=== PATIENT | male | born 1955 | race Caucasian/White ===

== ENCOUNTER 2017-03-31 12:40 | Emergency (ER) | payer MEDICAID, OTHER ==
[2017-03-31] MEDS ORDERED: HYDROCODONE/APAP 7.5/325MG TABLET PO ONE ×2 (13:00→14:25)
--- NOTE | 2017-03-31 13:05 | Emergency Department Record ---
History of Present Illness - General Chief Complaint: Fall Injury Stated Complaint: FALL INJURY Time Seen by Provider: 03/31/17 12:54 Source: Patient, Family Mode of Arrival: Wheelchair Limitations: No limitations - History of Present Illness Initial Comments: 62 yo male presents with right foot and ankle pain after a 6 foot fall off a ladder. He landed on the right lower extremity. He has right ankle and foot pain. No head, neck, chest, abdomen or other extremity pain. No LOC. No head injury. No back pain. No lacerations. No abrasions. MD Complaint: Fall Onset/Timin -: Hour(s) Fall From: From height (distance) When Fall Occurred: 1 hour RN ADVANCED Fall Witnessed: No Place Fall Occurred: Home Loss of Consciousness: None Prolonged Down Time?: No Symptoms Prior to Fall: None Location - Extremities: Right: Ankle, Foot Severity: Moderate Severity scale (1-10): 10 Quality: Aching, Dull, Other Associated Symptoms: Unable to walk - [place] Coma Scale Eye Response: (4) Open spontaneously Motor Response: (6) Obeys commands Verbal Response: (5) Oriented [place] Total: 15 - Related Data Home Medications Medication Instructions Recorded Confirmed Last Taken Albuterol Sulfate [Ventolin Hfa] 1 - 2 puff IH .EVERY 4-6 HOURS PRN 03/31/1711/05 Unknown Cholecalciferol (Vitamin D3) 2,000 unit PO DAILY 03/31/17 03/31/17 03/31/17 [Vitamin D3] Elviteg/Karina/Emtric/Tenofo Ala 1 each PO DAILY 03/31/17 03/31/17 03/31/17 [Genvoya Tablet] Omeprazole [Prilosec] 20 mg PO DAILY 03/31/17 03/31/17 03/31/17 Previous Rx's Medication Instructions Recorded Hydrocodone/Acetaminophen [[place] 1 each PO Q6H #30 tablet 03/31/17 5-325 Tablet] Hydrocodone/Acetaminophen [[place] 1 each PO Q6H #30 tablet 03/31/17 7.5-325 Tablet] Allergies Allergy/AdvReac Type Severity Reaction Status Date / Time No Known Drug Allergies Allergy Verified 01/13/15 18:04 Travel Screening - Travel/Exposure Within Last 30 Days Have you traveled within the last 30 days?: No - Travel/Exposure Within Last Year Have you traveled outside the [place] in the last year?: No - Additonal Travel Details Have you been exposed to anyone with a communicable illness?: No Review of Systems Constitutional: Denies: Chills, Fever, Malaise, Weakness Eyes: Denies: Eye discharge ENT: Denies: Congestion, Throat pain Respiratory: Denies: Cough, Dyspnea, Hemoptysis, Stridor, Wheezes Cardiovascular: Denies: Chest pain, Palpitations, Syncope Endocrine: Denies: Fatigue Gastrointestinal: Denies: Abdominal pain, Diarrhea, Nausea, Vomiting Genitourinary: Denies: Hematuria, Urgency Musculoskeletal: Reports: Arthralgia, Joint swelling, Myalgia. Denies: Back pain, Neck pain Skin: Denies: Bruising, Change in color, Rash Neurological: Reports: Tingling. Denies: Numbness, Tremors, Vertigo, Weakness Psychiatric: Denies: Anxiety Hematological/Lymphatic: Denies: Easy bleeding, Easy bruising, Swollen glands Past Medical History - SOCIAL HISTORY Smoking Status: Former smoker Alcohol Use: Heavy Drug Use: None - RESPIRATORY Hx Respiratory Disorders: No - CARDIOVASCULAR Hx Cardio Disorders: No - NEURO Hx Neuro Disorders: No - GI Hx GI Disorders: Yes Hx Abdominal Pain: Yes - Hx Genitourinary Disorders: Yes Hx Prostate Problems: Yes - ENDOCRINE Hx Endocrine Disorders: No - MUSCULOSKELETAL Hx Musculoskeletal Disorders: No - PSYCH Hx Psych Problems: Yes Hx Anxiety: Yes Hx Depression: Yes - HEMATOLOGY/ONCOLOGY Hx Hematology/Oncology Disorders: Yes Hx Blood Disorders: (HIV) Hx Cancer: Yes (skin) Hx Chemotherapy: No Hx Radiation Therapy: No Comment:: HIV positive/negative (undetectable) Family Medical History Any Significant Family History?: No Physical Exam - General General Appearance: Alert, Oriented x3, Cooperative, No acute distress Limitations: No limitations - Head Head exam: Atraumatic, Normocephalic, Normal inspection Head exam detail: negative: Abrasion, Contusion, Hematoma, Laceration - Eye Eye exam: Normal appearance, PERRL - ENT ENT exam: Normal exam, Mucous membranes moist, Normal external ear exam, Normal orophraynx, TM's normal bilaterally Ear exam: Normal external inspection. negative: External canal tenderness Nasal Exam: Normal inspection. negative: Discharge, Sinus tenderness Mouth exam: Normal external inspection, Tongue normal Teeth exam: Normal inspection. negative: Dental caries Throat exam: Normal inspection. negative: Tonsillar erythema, Tonsillar exudate - Neck Neck exam: Normal inspection, Full ROM. negative: Lymphadenopathy, Tenderness - Respiratory Respiratory exam: Normal lung sounds bilaterally. negative: Accessory muscle use, Chest wall tenderness, Decreased breath sounds, Respiratory distress - Cardiovascular Cardiovascular Exam: Regular rate, Normal rhythm, Normal heart sounds Peripheral Pulses: 2+: Dorsalis Pedis (R) - GI/Abdominal GI/Abdominal exam: Soft. negative: Distended, Guarding, Rigid, Tenderness - Rectal Rectal exam: Deferred - exam: Deferred - Extremities Extremities exam: Joint swelling, Normal capillary refill. negative: Normal inspection, Calf tenderness, Full ROM, Tenderness Image of Feet: 1 - tender lateral right foot and ankles, mild swelling, intact skin, no gross deformity, intact cap refill, intact sensation but some subjective tingling on dorsal foot, - Back Back exam: Reports: Normal inspection, Full ROM. Denies: Muscle spasm, Rash noted, Tenderness - Neurological Neurological exam: Alert, Oriented X3. negative: Altered, Motor sensory deficit - Psychiatric Psychiatric exam: Normal affect, Normal mood - Skin Skin exam: Dry, Intact, Normal color, Warm. negative: Abrasion, Cyanosis, Diaphoretic, Erythema Course - Reevaluation(s) Reevaluation #1: The patient was seen and examined XR ordered of foot and ankle No knee or proximal fibula pain. 03/31/17 13:05 Reevaluation #2: Rx demonstrated a non displaced calcaneal fracture. Not intra articular. 03/31/17 13:42 Reevaluation #3: I SW Dr Chapman. He will see the patient in the ED. 03/31/17 13:53 Reevaluation #4: Dr Chapman saw the patient in the ED He splinted the patient and arranged follow up 03/31/17 14:51 Reevaluation #5: 03/31/17 15:06 03/31/17 15:07 Disposition Disposition: Discharge Clinical Impression: Right calcaneal fracture Qualifiers: Encounter type: initial encounter Calcaneus location: unspecified portion of calcaneus Fracture type: closed Fracture alignment: nondisplaced Qualified Code( s): S92.001A - Unspecified fracture of right calcaneus, initial encounter for closed fracture Disposition: Home, Self-Care Condition: (1) Good Instructions: Calcaneal Fracture (ED) Additional Instructions: No weight bearing Use the crutches at all times Follow up as scheduled with Dr Chapman. Prescriptions: Hydrocodone/Acetaminophen [[place] 7.5-325 Tablet] 1 each PO Q6H #30 tablet Hydrocodone/Acetaminophen [[place] 5-325 Tablet] 1 each PO Q6H #30 tablet Forms: Patient Portal Access Time of Disposition: 15:00
--- NOTE | 2017-04-03 09:44 | Medical Records Consult ---
DATE OF CONSULTATION: 0 03/31/2017 REASON FOR CONSULTATION: Right heel pain. HISTORY OF PRESENT ILLNESS: This 62-year-old male was seen in the emergency department at [facility] for consultation concerning right foot pain. The patient gives a history of sustaining injury today when he fell off the ladder. When he came down, his foot hit a hammer handle and he felt immediate severe pain in his heel and subsequently hobbled to the car and was brought to the emergency department for evaluation. The patient did not admit to any other symptoms, did not have pain in the other leg or his back at this time. The patient admits to an intact neurovascular status except for a little bit of tingling in his toes but he does not admit to limitation of motion. PHYSICAL EXAMINATION: Our physical examination today shows his sensory status of his toes appears to be intact. Of course, he has pain and swelling about the ankle and difficulty moving it secondary to the pain. He has a significant amount of swelling around the calcaneus but the neurovascular status I believe is intact. He has good flush to the toes. The calf is not tender. The only area of swelling and tenderness is about the calcaneus. RADIOGRAPHIC DATA: The radiographs, which were reviewed, of his foot and ankle show a mildly comminuted fracture of the calcaneus without angulation or displacement. DIAGNOSTIC IMPRESSION: Fracture of the right calcaneus, comminuted, nondisplaced. RECOMMENDATION: Discussed the findings with the patient. I have recommended AP plaster mold, which was applied in the emergency department today. This will remain intact until I see him in the clinic on 04/13/2017. He was given a prescription for [place] 7.5/325 by the emergency room physician, Dustin Fuentes. The patient was instructed to be nonweightbearing with the use of his crutches on his right leg. He was told to elevate his heel above the level of his heart when he is not up walking. Should he have any problems prior to being seen, he was instructed to call my office. MAKAYLA
== END 2017-03-31 15:36 | disposition home or self-care (01) ==
LOC: ER 12:40
DX: S92.001A Unspecified fracture of right calcaneus, initial encounter for closed fracture (principal); M25.571 Pain in right ankle and joints of right foot; W11.XXXA Fall on and from ladder, initial encounter; Y92.009 Unspecified place in unspecified non-institutional (private) residence as the place of occurrence of the external cause
CPT/HCPCS: 99283; 99284

== ENCOUNTER 2018-10-12 17:13 | Emergency (ER) | payer MEDICARE ==
[2018-10-12] MEDS ORDERED: ASPIRIN 81 MG CHEWABLE TABLET PO ONE (17:48)
[2018-10-12 18:19] LABS: BASO % 0.2 % (0-6); GRAN % 52.4 % (47-80); HEMATOCRIT 44.4 % (42.0-52.0); HEMOGLOBIN 14.7 gm/dl (14.0-18.0); LYMPH % 40.3 % (16-45); MEAN CELL VOLUME 95.7 fl (81-97); MEAN CORPUSCULAR HEMOGLOBIN 31.7 pg (27-33); MEAN CORPUSCULAR HGB CONC 33.1 g/dl (32-36); MEAN PLATELET VOLUME 9.4 fl (7.4-10.4); MONO % 6.1 % (0-9); PLATELET COUNT 275 K/uL (130-400); RED BLOOD COUNT 4.64 M/uL (4.40-5.70); RED CELL DISTRIBUTION WIDTH 13.1 % (11.5-14.5); WHITE BLOOD COUNT W/O DIFF 8.4 K/uL (4.2-12.2)
[2018-10-12] MEDS ORDERED: 0.9 % SODIUM CHLORIDE 1,000 ML BAG IV ONE (18:21)
--- NOTE | 2018-10-12 18:24 | Emergency Department Record ---
History of Present Illness - General Source: Patient Mode of Arrival: Wheelchair Limitations: No limitations - History of Present Illness Initial Comments: pt had a brief spell this am where he felt out of it an hour after taking viagra. since then he hasnt felt well and has had weakness and a pinching in his chest. he has also had neck and l arm pain MD Complaint: Chest pain, Other Onset/Timin -: Hour(s) Onset: During rest, Other Pain Location: Substernal Severity scale (1-10): 2 Quality: Other Consistency: Intermittent Anginal Symptoms: Diaphoresis, Nausea <Munira Freeman - Last Filed: 10/12/18 18:59> <Franck Krause - Last Filed: 10/12/18 21:46> - General Chief Complaint: Chest Pain Stated Complaint: CHEST PAIN Time Seen by Provider: 10/12/18 17:40 - Related Data Home Medications Medication Instructions Recorded Confirmed Last Taken Sildenafil Citrate [Viagra] 25 mg PO ASDIR PRN 10/12/18 10/12/18 10/12/18 Tramadol HCl 1 tab PO ASDIR PRN 10/12/18 10/12/18 Unknown Allergies Allergy/AdvReac Type Severity Reaction Status Date / Time No Known Drug Allergies Allergy Verified 10/12/18 17:28 Travel Screening - Travel/Exposure Within Last 30 Days Have you traveled within the last 30 days?: No - Travel/Exposure Within Last Year Have you traveled outside the [place] in the last year?: No - Additonal Travel Details Have you been exposed to anyone with a communicable illness?: No <Munira Freeman - Last Filed: 10/12/18 18:59> Review of Systems Reviewed: No additional complaints except as noted below Constitutional: Reports: As per HPI, Weakness. Denies: Chills, Fever, Malaise, Night sweats, Weight change Eyes: Reports: As per HPI. Denies: Eye discharge, Eye pain, Photophobia, Vision change ENT: Reports: As per HPI. Denies: Congestion, Dental pain, Ear pain, Epistaxis , Hearing loss, Throat pain Respiratory: Reports: As per HPI. Denies: Cough, Dyspnea, Hemoptysis, Stridor, Wheezes Cardiovascular: Reports: As per HPI, Chest pain. Denies: Arrhythmia, Dyspnea on exertion, Edema, Murmurs, Orthopnea, Palpitations, Paroxysmal nocturnal dyspnea, Rheumatic Fever, Syncope Endocrine: Reports: As per HPI. Denies: Fatigue, Heat or cold intolerance, Polydipsia, Polyuria Gastrointestinal: Reports: As per HPI. Denies: Abdominal pain, Constipation, Diarrhea, Hematemesis, Hematochezia, Melena, Nausea, Vomiting Genitourinary: Reports: As per HPI. Denies: Dysuria, Frequency, Hematuria, Incontinence, Retention, Testicular pain, Testicular mass, Urgency Musculoskeletal: Reports: As per HPI. Denies: Arthralgia, Back pain, Gout, Joint swelling, Myalgia, Neck pain Skin: Reports: As per HPI. Denies: Bruising, Change in color, Change in hair/ nails, Lesions, Pruritus, Rash Neurological: Reports: As per HPI. Denies: Abnormal gait, Confusion, Headache, Numbness, Paresthesias, Seizure, Tingling, Tremors, Vertigo, Weakness Psychiatric: Reports: As per HPI. Denies: Anxiety, Auditory hallucinations, Depression, Homicidal thoughts, Suicidal thoughts, Visual hallucinations Hematological/Lymphatic: Reports: As per HPI. Denies: Anemia, Blood Clots, Easy bleeding, Easy bruising, Swollen glands <Munira Freeman - Last Filed: 10/12/18 18:59> Past Medical History - SOCIAL HISTORY Smoking Status: Former smoker Alcohol Use: Occasional Drug Use: Rare Drug Use Detail:: Marijuana - RESPIRATORY Hx Respiratory Disorders: No - CARDIOVASCULAR Hx Cardio Disorders: No - NEURO Hx Neuro Disorders: No - GI Hx GI Disorders: Yes Hx Abdominal Pain: Yes Hx Reflux: Yes - Hx Genitourinary Disorders: Yes Hx Prostate Problems: Yes - ENDOCRINE Hx Endocrine Disorders: No - MUSCULOSKELETAL Hx Musculoskeletal Disorders: No - PSYCH Hx Psych Problems: Yes Hx Anxiety: Yes Hx Depression: Yes - HEMATOLOGY/ONCOLOGY Hx Hematology/Oncology Disorders: Yes Hx Blood Disorders: (HIV) Hx Cancer: Yes (skin) Hx Chemotherapy: No Hx Radiation Therapy: No Comment:: HIV positive/negative (undetectable) <Munira Freeman - Last Filed: 10/12/18 18:59> Family Medical History Any Significant Family History?: No <Munira Freeman - Last Filed: 10/12/18 18:59> Physical Exam - General General Appearance: Alert, Oriented x3, Cooperative, Mild distress - Head Head exam: Normal inspection - Eye Eye exam: Normal appearance, PERRL, EOMI Pupils: Normal accommodation - ENT ENT exam: Normal exam, Mucous membranes moist, Normal external ear exam, Normal orophraynx Ear exam: Normal external inspection. negative: External canal tenderness Nasal Exam: Normal inspection. negative: Discharge, Sinus tenderness Mouth exam: Normal external inspection, Tongue normal Teeth exam: Normal inspection. negative: Dental caries Throat exam: Normal inspection. negative: Tonsillar erythema, Tonsillar exudate - Neck Neck exam: Normal inspection, Full ROM. negative: Tenderness - Respiratory Respiratory exam: Normal lung sounds bilaterally. negative: Respiratory distress - Cardiovascular Cardiovascular Exam: Regular rate, Normal rhythm, Normal heart sounds - GI/Abdominal GI/Abdominal exam: Soft, Normal bowel sounds. negative: Tenderness - Rectal Rectal exam: Deferred - exam: Deferred - Extremities Extremities exam: Normal inspection, Full ROM, Normal capillary refill. negative: Tenderness - Back Back exam: Reports: Normal inspection, Full ROM. Denies: Muscle spasm, Rash noted, Tenderness - Neurological Neurological exam: Alert, CN II-XII intact, Normal gait, Oriented X3 - Psychiatric Psychiatric exam: Normal affect, Normal mood - Skin Skin exam: Dry, Intact, Normal color, Warm <Munira Freeman - Last Filed: 10/12/18 18:59> Course Vital Signs 10/12/18 17:15 Temperature 97.8 F Pulse Rate 86 Respiratory 18 Rate Blood Pressure 161/95 Pulse Ox 97 - Reevaluation(s) Reevaluation #1: 10/12/18 18:53 pt having no cp.care being turned over to dr krause pending 4 hour troponin <Munira Freeman - Last Filed: 10/12/18 18:59> Vital Signs 10/12/18 10/12/18 10/12/18 17:15 19:03 20:27 Temperature 97.8 F Pulse Rate 86 Pulse Rate [ 68 71 Pulse Ox Probe] Respiratory 18 16 14 Rate Blood Pressure 161/95 Blood Pressure 146/87 123/73 [Left Arm] Pulse Ox 97 100 98 - Reevaluation(s) Reevaluation #2: The plan per Dr. Freeman was to check a 2nd trop and discharge if neg and his discharge orders were written. The 2nd trop test is neg and I did make the patient aware of that. I also did discuss the recommendation to stay in the hospital overnight to make sure his heart is OK. The patient understands the risks of refusing to stay and accepts the risks. I did discuss that the risks of leaving are that he could go home and have an DC, stroke, become disabled and . The patient presently has proper decision making capacity and is electing to leave. He was instructed to return to the ER at any time for recheck or return of the pain. 10/12/18 21:43 <Franck Krause - Last Filed: 10/12/18 21:46> Medical Decision Making - Lab Data Result diagrams: 10/12/18 17:20 10/12/18 17:20 <Munira Freeman - Last Filed: 10/12/18 18:59> - Lab Data Result diagrams: 10/12/18 17:20 10/12/18 17:20 Lab Results 10/12/18 10/12/18 10/12/18 Range/Units 17:20 17:20 17:20 WBC 8.4 (4.2-12.2) K/uL RBC 4.64 (4.40-5.70) M/uL Hgb 14.7 (14.0-18.0) gm/dl Hct 44.4 (42.0-52.0) % MCV 95.7 (81-97) fl MCH 31.7 (27-33) pg MCHC 33.1 (32-36) g/dl RDW 13.1 (11.5-14.5) % Plt Count 275 (130-400) K/uL MPV 9.4 (7.4-10.4) fl Gran % 52.4 (47-80) % Lymphocytes % 40.3 (16-45) % Monocytes % 6.1 (0-9) % Eosinophils % 1.0 (0-6) % Basophils % 0.2 (0-6) % D-Dimer 0.48 (0-0.59) mg/L FEU Sodium 144 (136-145) mmol/L Potassium 4.0 (3.4-4.5) mmol/L Chloride 104 (98-107) mmol/L Carbon Dioxide 29.0 (22-29) mmol/L Anion Gap 11.0 (7-16) BUN 11 (8-23) mg/dL Creatinine 0.9 (0.7-1.2) mg/dL Estimated GFR > 60 mL/min Random Glucose 105 (74-109) mg/dL Calcium 9.5 (8.8-10.2) mg/dL Total Bilirubin 0.20 (0.2-1.0) mg/dL AST 21 (10.0-50.0) U/L ALT 23 (<41) U/L Alkaline Phosphatase 45 (40-129) U/L Creatine Kinase 79 (39-308) U/L CK-MB (CK-2) 3.6 (<6.73) ng/mL Troponin T < 0.010 (0-0.010) ng/mL NT-Pro-B Natriuret Pep 24.22 (<125) pg/mL Total Protein 7.5 (6.6-8.7) g/dL Albumin 4.5 (4.0-5.0) g/dL Globulin 3.0 (1.4-4.8) gm/dL Albumin/Globulin Ratio 1.5 (1.1-1.8) 10/12/18 Range/Units 21:00 WBC (4.2-12.2) K/uL RBC (4.40-5.70) M/uL Hgb (14.0-18.0) gm/dl Hct (42.0-52.0) % MCV (81-97) fl MCH (27-33) pg MCHC (32-36) g/dl RDW (11.5-14.5) % Plt Count (130-400) K/uL MPV (7.4-10.4) fl Gran % (47-80) % Lymphocytes % (16-45) % Monocytes % (0-9) % Eosinophils % (0-6) % Basophils % (0-6) % D-Dimer (0-0.59) mg/L FEU Sodium (136-145) mmol/L Potassium (3.4-4.5) mmol/L Chloride (98-107) mmol/L Carbon Dioxide (22-29) mmol/L Anion Gap (7-16) BUN (8-23) mg/dL Creatinine (0.7-1.2) mg/dL Estimated GFR mL/min Random Glucose (74-109) mg/dL Calcium (8.8-10.2) mg/dL Total Bilirubin (0.2-1.0) mg/dL AST (10.0-50.0) U/L ALT (<41) U/L Alkaline Phosphatase (40-129) U/L Creatine Kinase (39-308) U/L CK-MB (CK-2) (<6.73) ng/mL Troponin T < 0.010 (0-0.010) ng/mL NT-Pro-B Natriuret Pep (<125) pg/mL Total Protein (6.6-8.7) g/dL Albumin (4.0-5.0) g/dL Globulin (1.4-4.8) gm/dL Albumin/Globulin Ratio (1.1-1.8) <Franck Krause - Last Filed: 10/12/18 21:46> Disposition Disposition: Discharge <Munira Freeman - Last Filed: 10/12/18 18:59> <Franck Krause - Last Filed: 10/12/18 21:46> Clinical Impression: Chest pain Qualifiers: Chest pain type: unspecified Qualified Code(s): R07.9 - Chest pain, unspecified Disposition: Home, Self-Care Condition: (1) Good Instructions: Chest Pain (ED) Additional Instructions: follow up with rug sizer nahomy monday. return sooner if worse. take aspirin 81mg a day, do not take viagra until cleared by dr sanz Referrals: DOUGLAS SANZ M.D. [MEDICAL DOCTOR] - [facility] [Provider Group] Forms: Patient Portal Access Quality - Blood Pressure Screening Does Patient Have Any of the Following: No Blood Pressure Classification: Hypertensive Reading Systolic Measurement: 161 Diastolic Measurement: 95 <Munira Freeman - Last Filed: 10/12/18 18:59> - Blood Pressure Screening Does Patient Have Any of the Following: No Blood Pressure Classification: Hypertensive Reading Systolic Measurement: 161 Diastolic Measurement: 95 <Franck Krause - Last Filed: 10/12/18 21:46>
[2018-10-12 18:28] LABS: BLOOD UREA NITROGEN 11 mg/dL (8-23)
[2018-10-12 18:29] LABS: CREATININE 0.9 mg/dL (0.7-1.2); EST GLOMERULAR FILTRATION RATE > 60 mL/min; TOTAL PROTEIN 7.5 g/dL (6.6-8.7)
[2018-10-12 18:31] LABS: GLUCOSE,RANDOM 105 mg/dL (74-109)
[2018-10-12 18:34] LABS: ALB/GLOB RATIO 1.5 (1.1-1.8); ALBUMIN 4.5 g/dL (4.0-5.0); ALKALINE PHOSPHATASE 45 U/L (40-129); ALT/SGPT 23 U/L (<41); AST/SGOT 21 U/L (10.0-50.0); CREATINE PHOSPHOKINASE 79 U/L (39-308)
[2018-10-12 18:36] LABS: CKMB 3.6 ng/mL (<6.73)
[2018-10-12 18:37] LABS: NTpro B-NATRIURETIC PEPTIDE 24.22 pg/mL (<125)
--- NOTE | 2018-10-13 19:46 | RADIOLOGY REPORT ---
EXAM: CHEST 2 VIEWS HISTORY: DIFFICULTY IN BREATHING. TECHNIQUE: Frontal and lateral views of the chest were performed. FINDINGS: Heart size is normal. The lung guan are clear. Osseous structures are normal. IMPRESSION: NEGATIVE CHEST EXAMINATION. JOB NUMBER: [id number]
== END 2018-10-12 21:48 | disposition home or self-care (01) ==
LOC: ER 17:13
DX: R07.2 Precordial pain (principal); R06.00 Dyspnea, unspecified; R53.1 Weakness; R11.0 Nausea; R61 Generalized hyperhidrosis; M25.512 Pain in left shoulder; M54.2 Cervicalgia; F17.210 Nicotine dependence, cigarettes, uncomplicated
CPT/HCPCS: 71046; 80053; 82550; 82553; 83880; 84484; 85025; 85379; 93005; 93010; 99284; J7030